=== PATIENT | male | born 1950 | race Caucasian/White ===

== ENCOUNTER 2017-08-19 09:46 | Emergency (ER) | payer MEDICARE, BC ==
--- NOTE | 2017-08-19 10:57 | XR ---
EXAMINATION TYPE: XR Hip RT and AP Pelvis , 3 VIEWS DATE OF EXAM ORDERED: 08/19/2017 HISTORY: Pain. COMPARISON: None. FINDINGS: Osseous structures about the pelvis are unremarkable. No fracture or dislocation is seen. The right hip is unremarkable. IMPRESSION: NO ACUTE OSSEOUS LESION.
--- NOTE | 2017-08-19 10:58 | XR ---
EXAMINATION TYPE: XR lumbar spine 2 or 3V , 3 VIEWS DATE OF EXAM ORDERED: 08/19/2017 HISTORY: Pain. COMPARISON: None. FINDINGS: Vertebral body height and alignment are maintained. No fractures are identified. There is no spondylolysis or spondylolisthesis. There is mild disc space loss at L4-5 and L5-S1. The pedicles are intact. IMPRESSION: 1. NO ACUTE OSSEOUS LESION. 2. MILD DEGENERATIVE CHANGE.
--- NOTE | 2017-08-19 11:20 | ED ---
General Adult HPI - General Chief complaint: Back Pain/Injury Stated complaint: back pain Time Seen by Provider: 08/19/17 10:09 Source: patient, RN notes reviewed Mode of arrival: ambulatory Limitations: no limitations - History of Present Illness Initial comments: Patient 66-year-old male presenting to the emergency room today with a chief complaint of increased lower back pain radiating down the right leg. Does not that he saw the family doctor for this recurrent in the week is currently taking tramadol, Flexeril, ibuprofen but having little relief the symptoms. He does admit that his leg has given out on him a few times yesterday having some falls. He admits to increased pain to the right hip. Patient denies any head injury or loss conscious. He is not on any blood thinners. Patient does admit still expressing pain radiating down to approximately mid calf. Patient denies any bowel or bladder incontinence retention. Denies any saddle anesthesia. Patient denies any recent fever, chills, shortness of breath, chest pain, abdominal pain, nausea or vomiting, headaches or visual changes, or any other complaints. - Related Data Home Medications Medication Instructions Recorded Confirmed Amantadine HCl [Symmetrel] 100 mg PO BID 08/19/17 08/19/17 Carbidopa-Levodopa 25-100 mg 2 tab PO QID 08/19/17 08/19/17 [Sinemet 25-100] Cartilage/Collagen/Bor/Hyalur 1 tab PO DAILY 08/19/17 08/19/17 [Move Free Ultra Tablet] Cyclobenzaprine [Flexeril] 10 mg PO HS PRN 08/19/17 08/19/17 Donepezil [Aricept] 10 mg PO HS 08/19/17 08/19/17 Entacapone [Comtan] 200 mg PO HS 08/19/17 08/19/17 Ibuprofen [Motrin] 800 mg PO BID PRN 08/19/17 08/19/17 Sildenafil Citrate [Viagra] 100 mg PO DAILY PRN 08/19/17 08/19/17 clonazePAM [KlonoPIN] 1 mg PO HS 08/19/17 08/19/17 Previous Rx's Medication Instructions Recorded Dexamethasone 0.75 mg PO DIRECTED #12 tablet 08/19/17 Hydrocodone/Acetaminophen [Cordova 1 each PO Q6HR PRN #12 tab 08/19/17 5-325] Allergies Allergy/AdvReac Type Severity Reaction Status Date / Time No Known Allergies Allergy Verified 08/19/17 09:58 Review of Systems ROS Statement: Those systems with pertinent positive or pertinent negative responses have been documented in the HPI. ROS Other: All systems not noted in ROS Statement are negative. Past Medical History Past Medical History: Dementia Additional Past Medical History / Comment(s): parkensons History of Any Multi-Drug Resistant Organisms: None Reported Past Surgical History: Appendectomy Past Psychological History: No Psychological Hx Reported Smoking Status: Former smoker Past Alcohol Use History: None Reported Past Drug Use History: None Reported General Exam - General Exam Comments Initial Comments: General: The patient is awake and alert, in no distress, and does not appear acutely ill. Eye: Pupils are equal, round and reactive to light, extra-ocular movements are intact. No nystagmus. There is normal conjunctiva bilaterally. No signs of icterus. Ears, nose, mouth and throat: There are moist mucous membranes and no oral lesions. Neck: The neck is supple, there is no tenderness or JVD. Cardiovascular: There is a regular rate and rhythm. No murmur, rub or gallop is appreciated. Respiratory: Lungs are clear to auscultation, respirations are non-labored, breath sounds are equal. No wheezes, stridor, rales, or rhonchi Musculoskeletal: Normal ROM. Patient is able to stand and ambulate. Patient does have mild tenderness to the paravertebral area of the right lower lumbar pain over the SI joint. Strength 5/5. Sensation intact. Pulses equal bilaterally 2+. Neurological: A&O x 3. CN II-XII intact, There are no obvious motor or sensory deficits. Coordination appears grossly intact. Speech is normal. Skin: Skin is warm and dry and no rashes or lesions are noted. Psychiatric: Cooperative, appropriate mood & affect, normal judgment. Limitations: no limitations Course Vital Signs 08/19/17 09:49 Temperature 98.4 F Pulse Rate 73 Respiratory 18 Rate Blood Pressure 143/70 O2 Sat by Pulse 99 Oximetry Medical Decision Making - Medical Decision Making X-rays reviewed does show arthritic changes of the lumbar spine with no acute fractures dislocations seen in the lumbar spine, hip or pelvis. Results were discussed with the patient. Patient will be given a short course of steroids and pain medication of Cordova. Advised to follow-up the family doctor states is an appointment tomorrow. Advised about side effects of Cordova. Advised return for any other concerns. Disposition Clinical Impression: Acute lumbar radiculopathy Disposition: HOME SELF-CARE Condition: Good Instructions: Lumbar Radiculopathy (ED) Additional Instructions: Please use medication as discussed. Please follow-up with family doctor tomorrow as discussed. Please return to emergency room if the symptoms increase or worsen or for any other concerns. Prescriptions: Dexamethasone 0.75 mg PO DIRECTED #12 tablet Hydrocodone/Acetaminophen [Cordova 5-325] 1 each PO Q6HR PRN #12 tab PRN Reason: Pain Referrals: Srini Heath MD [Primary Care Provider] - 1-2 days Time of Disposition: 11:19
[2017-08-19 11:28] VITALS: BP 141/76; PULSE 78; RESP 16; TEMP 97.9
== END 2017-08-19 11:26 | disposition home or self-care (01) ==
LOC: EC 09:46
DX: M54.16 Radiculopathy, lumbar region (principal); F03.90 Unspecified dementia, unspecified severity, without behavioral disturbance, psychotic disturbance, mood disturbance, and anxiety; Z87.891 Personal history of nicotine dependence; Z79.899 Other long term (current) drug therapy
CPT/HCPCS: 72100; 73502; 99283

== ENCOUNTER → 2017-08-29 | Outpatient (CLI) | payer BC, MEDICARE ==
--- NOTE | 2017-08-29 15:36 | NM ---
EXAMINATION TYPE: NM bone scan whole body DATE OF EXAM: 08/29/2017 COMPARISON: NONE HISTORY: 66-year-old male with low back pain for 3 weeks, hip pain Technique: Delayed whole-body scanning was performed following the injection of 24.3 mCi Tc 99m MDP. Images acquired 3 hours post injection. FINDINGS: There is degenerative tracer activity at the shoulders and medial compartment of the right knee. There is focal tracer activity along the posterior elements at L4-L5. Additional degenerative tracer activity in the posterior elements of the midcervical spine. Otherwise, no suspicious accumulation of radiotracer to suggest osseous metastatic disease. IMPRESSION: 1. Focal tracer activity involving the right posterior elements at L4-L5. Findings could reflect galilea re asymmetric facet arthropathy or a pars interarticularis defect. 2. Scattered degenerative tracer activity at the shoulders, medial compartment of the right knee, and within the mid cervical spine.
== END | disposition home or self-care (01) ==
LOC: RADNMMAIN 10:36
PROVIDERS: ATTEND Family Medicine
DX: R93.7 Abnormal findings on diagnostic imaging of other parts of musculoskeletal system (principal)
CPT/HCPCS: 78306; A9503

== ENCOUNTER → 2017-09-26 | Outpatient (CLI) | payer BC, MEDICARE ==
--- NOTE | 2017-09-26 21:03 | MR ---
EXAMINATION TYPE: MR lumbar spine wo con DATE OF EXAM: 09/26/2017 COMPARISON: NONE HISTORY: low back pain CONTRAST: 0 mL intravenous Gadavist. TECHNIQUE: Multiplanar, multisequence images of the lumbar spine were acquired. FINDINGS: Cord terminates at the T12 level. L5-S1: Mild disc bulge has mild anterior thecal sac compression. No AP spinal canal stenosis is prese nt. There appears to be some minimal retrolisthesis of L5 posterior on S1. Disc uncovering is present . Facet hypertrophy is present. There is mild right foraminal narrowing. Severe left foraminal narrow ing is present. Correlate with left S1 radicular symptoms. L4-L5: Facet hypertrophy has posterior lateral thecal sac compression. Lateral canal narrowing is pre sent. AP spinal canal stenosis is borderline present. There is a large right paracentral disc herniat ion extending superiorly to lie posterior to the L4 level. This has moderate to severe anterior theca l sac compression. There is likely right L5 radicular compression. Severe right foraminal stenosis wi thin the foramen is present. There is moderate left foraminal narrowing. L3-L4: Minimal disc bulge has anterior thecal sac contact. Mild facet hypertrophy is posterior latera l thecal sac compression. No spinal canal stenosis. No foraminal stenosis. L2-L3: No significant disc bulge or disc herniation. No spinal canal stenosis. No foraminal stenosi s. Neural foramen are patent.. L1-L2: No significant disc bulge or disc herniation. No spinal canal stenosis. No foraminal stenosi s. T12-L1: No significant disc bulge or disc herniation. No spinal canal stenosis. No foraminal stenos is. IMPRESSION: 1. Retrolisthesis of L5 on S1 with mild disc uncovering. 2. Severe left foraminal narrowing L5-S1 secondary to disc bulging into the foramen. 3. Severe right foraminal stenosis L4-5 due to facet hypertrophy and disc bulging with nerve root com pression within the foramen. 4. Large disc herniation right paracentral L4-5 likely has right L5 nerve root compression and displa cement within the spinal canal.
--- NOTE | 2017-09-26 21:13 | MR ---
EXAMINATION TYPE: MR brain wo/w con DATE OF EXAM: 09/26/2017 COMPARISON: 12/02/2015 HISTORY: Mild cognitive impairment, history of Parkinson's disease CONTRAST: Performed utilizing 7.5 mL intravenous Gadavist gadolinium contrast. TECHNIQUE: Multiplanar, multiecho imaging on a 3.0 Bernadette magnet is performed through the brain. Stud y is performed within 24 hours of arrival to the hospital. The craniovertebral junction is normal. The pituitary is normal. Diffusion-weighted imaging is performed. No abnormal hyperintensity is present to suggest an acute i ntracranial infarct or acute ischemic change. There are scattered subcortical and deep white matter changes. The largest is within the proximal rig ht temporal lobe. These white matter lesions are slightly more conspicuous but appears similar in num jenn and distribution from the previous study. Differential could include microvascular ischemic frye e. Substantia nigra is not well visualized. There is a suggestion there may be some narrowing of the rig ht red nucleus substantia nigra space which has been associated with Parkinson's disease. Ventricles and sulci are prominent for the patient age. No abnormal enhancement is evident. IMPRESSIONS: 1. Similar distribution but slightly improved visualization of multiple white matter changes. Finding s are nonspecific but can be related to microvascular ischemic change. 2. Substantia nigra is somewhat difficult to visualize on this exam the space however on the right be tween the red nucleus and substantia nigra may be narrow which is associated with Parkinson's.
== END ==
LOC: RADMRIMAIN 15:05
PROVIDERS: ATTEND Psychiatry & Neurology Neurology
DX: R90.89 Other abnormal findings on diagnostic imaging of central nervous system (principal); M79.604 Pain in right leg
CPT/HCPCS: 70553; 72148; A9581

== ENCOUNTER 2018-10-14 09:12 | Emergency (ER) | payer MEDICARE, BC ==
[2018-10-14] MEDS ORDERED: SODIUM CHLORIDE 0.9% 1,000 ML IV STA (09:18)
[2018-10-14] MEDS ORDERED: SODIUM CHLORIDE 0.9% 500 ML 500 ML IV STA (09:18)
--- NOTE | 2018-10-14 09:48 | ED ---
Syncope HPI - General Chief Complaint: Syncope Stated Complaint: SYNCOPAL EPISODE Time Seen by Provider: 10/14/18 09:18 Source: patient, EMS, RN notes reviewed Mode of arrival: EMS Limitations: no limitations - History of Present Illness Initial Comments: This is a 68-year-old male with a history of Parkinson's disease who states he fell he did pass out prior to arrival by EMS from his doctor's office. He states he been standing for about 10 minutes when this occurred. He did not actually lose consciousness he denied fevers chills nausea vomiting sweats or other symptoms. He was noted by paramedics have a heart rate of 58 blood pressure approximately 120 systolic. No other modifying factors at this time MD Complaint: almost passed out - Related Data Home Medications Medication Instructions Recorded Confirmed Amantadine HCl [Symmetrel] 100 mg PO BID 08/19/17 10/14/18 Carbidopa-Levodopa 25-100 mg 2 tab PO QID 08/19/17 10/14/18 [Sinemet 25-100] Donepezil [Aricept] 10 mg PO HS 08/19/17 10/14/18 Sildenafil Citrate [Viagra] 100 mg PO DAILY PRN 08/19/17 10/14/18 clonazePAM [KlonoPIN] 1.5 mg PO HS 08/19/17 10/14/18 Atorvastatin Calcium [Lipitor] 80 mg PO HS 10/14/18 10/14/18 Ibuprofen [Motrin Ib] 200 mg PO DAILY PRN 10/14/18 10/14/18 Memantine [Namenda] 10 mg PO BID 10/14/18 10/14/18 Multivitamins, Thera [Multivitamin 1 tab PO DAILY 10/14/18 10/14/18 (formulary)] Allergies Allergy/AdvReac Type Severity Reaction Status Date / Time No Known Allergies Allergy Verified 10/14/18 09:31 Review of Systems ROS Statement: Those systems with pertinent positive or pertinent negative responses have been documented in the HPI. ROS Other: All systems not noted in ROS Statement are negative. Past Medical History Past Medical History: Dementia Additional Past Medical History / Comment(s): [place] History of Any Multi-Drug Resistant Organisms: None Reported Past Surgical History: Appendectomy Past Psychological History: No Psychological Hx Reported Smoking Status: Former smoker Past Alcohol Use History: None Reported Past Drug Use History: None Reported General Exam - General Exam Comments Initial Comments: Pezzer well-developed asthenic appearing male who is awake alert oriented 3 Limitations: no limitations General appearance: alert, in no apparent distress Head exam: Present: atraumatic, normocephalic, normal inspection Eye exam: Present: normal appearance, PERRL, EOMI. Absent: scleral icterus, conjunctival injection, periorbital swelling ENT exam: Present: mucous membranes dry Neck exam: Present: normal inspection, full ROM, other (No stridor JVD or bruits). Absent: tenderness, meningismus, lymphadenopathy Respiratory exam: Present: normal lung sounds bilaterally. Absent: respiratory distress, wheezes, rales, rhonchi, stridor Cardiovascular Exam: Present: regular rate, normal rhythm, normal heart sounds. Absent: systolic murmur, diastolic murmur, rubs, gallop, clicks GI/Abdominal exam: Present: soft, normal bowel sounds. Absent: distended, tenderness, guarding, rebound, rigid Extremities exam: Present: normal inspection, full ROM, normal capillary refill. Absent: tenderness, pedal edema, joint swelling, calf tenderness Back exam: Present: normal inspection Neurological exam: Present: alert, oriented X3, CN II-XII intact Psychiatric exam: Present: normal mood, flat affect Skin exam: Present: warm, dry, intact, normal color. 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 No PACs or PVCs noted. Rate was 55. Medical Decision Making - Medical Decision Making Reevaluation patient reveals that he is much improved he feels much better after IV fluids. I did discuss findings with him and is with his . Patient will be discharged home. The presentation is likely secondary to viral depletion. He is also noted have a slightly diminished glucose initially.. They are aware this - Lab Data Result diagrams: 10/14/18 09:25 10/14/18 09:30 Lab Results 10/14/18 10/14/18 10/14/18 Range/Units 09:25 09:30 09:30 WBC 6.2 (3.8-10.6) k/uL RBC 5.18 (4.30-5.90) m/uL Hgb 16.0 (13.0-17.5) gm/dL Hct 47.6 (39.0-53.0) % MCV 91.8 (80.0-100.0) fL MCH 30.8 (25.0-35.0) pg MCHC 33.6 (31.0-37.0) g/dL RDW 12.5 (11.5-15.5) % Plt Count 288 (150-450) k/uL Neutrophils % 75 % Lymphocytes % 15 % Monocytes % 5 % Eosinophils % 1 % Basophils % 0 % Neutrophils # 4.7 (1.3-7.7) k/uL Lymphocytes # 1.0 (1.0-4.8) k/uL Monocytes # 0.3 (0-1.0) k/uL Eosinophils # 0.1 (0-0.7) k/uL Basophils # 0.0 (0-0.2) k/uL PT 10.0 (9.0-12.0) sec INR 0.9 (<1.2) APTT 22.3 (22.0-30.0) sec Sodium 141 (137-145) mmol/L Potassium 4.4 (3.5-5.1) mmol/L Chloride 105 (98-107) mmol/L Carbon Dioxide 30 (22-30) mmol/L Anion Gap 6 mmol/L BUN 19 (9-20) mg/dL Creatinine 1.02 (0.66-1.25) mg/dL Est GFR (CKD-EPI)AfAm 88 (>60 ml/min/1.73 sqM) Est GFR (CKD-EPI)NonAf 76 (>60 ml/min/1.73 sqM) Glucose 71 L (74-99) mg/dL Calcium 9.5 (8.4-10.2) mg/dL Magnesium 2.1 (1.6-2.3) mg/dL Total Bilirubin 0.9 (0.2-1.3) mg/dL AST 28 (17-59) U/L ALT 15 L (21-72) U/L Alkaline Phosphatase 63 (38-126) U/L Creatine Kinase 89 (55-170) U/L Troponin I (0.000-0.034) ng/mL Total Protein 6.4 (6.3-8.2) g/dL Albumin 4.2 (3.5-5.0) g/dL 10/14/18 Range/Units 09:30 WBC (3.8-10.6) k/uL RBC (4.30-5.90) m/uL Hgb (13.0-17.5) gm/dL Hct (39.0-53.0) % MCV (80.0-100.0) fL MCH (25.0-35.0) pg MCHC (31.0-37.0) g/dL RDW (11.5-15.5) % Plt Count (150-450) k/uL Neutrophils % % Lymphocytes % % Monocytes % % Eosinophils % % Basophils % % Neutrophils # (1.3-7.7) k/uL Lymphocytes # (1.0-4.8) k/uL Monocytes # (0-1.0) k/uL Eosinophils # (0-0.7) k/uL Basophils # (0-0.2) k/uL PT (9.0-12.0) sec INR (<1.2) APTT (22.0-30.0) sec Sodium (137-145) mmol/L Potassium (3.5-5.1) mmol/L Chloride (98-107) mmol/L Carbon Dioxide (22-30) mmol/L Anion Gap mmol/L BUN (9-20) mg/dL Creatinine (0.66-1.25) mg/dL Est GFR (CKD-EPI)AfAm (>60 ml/min/1.73 sqM) Est GFR (CKD-EPI)NonAf (>60 ml/min/1.73 sqM) Glucose (74-99) mg/dL Calcium (8.4-10.2) mg/dL Magnesium (1.6-2.3) mg/dL Total Bilirubin (0.2-1.3) mg/dL AST (17-59) U/L ALT (21-72) U/L Alkaline Phosphatase (38-126) U/L Creatine Kinase (55-170) U/L Troponin I <0.012 (0.000-0.034) ng/mL Total Protein (6.3-8.2) g/dL Albumin (3.5-5.0) g/dL - EKG Data -: EKG Interpreted by Me EKG shows normal: sinus rhythm (Sinus bradycardia rate 55. Interval 132 QRS duration 98 QT since QTC 420/4. [address]-T wave changes.) - Radiology Data Radiology results: report reviewed (I did review the imaging and report no acute findings.), image reviewed Disposition Clinical Impression: Vasovagal syncope, Dehydration Disposition: HOME SELF-CARE Condition: Good Instructions (If sedation given, give patient instructions): Near Syncope (ED), Dehydration (ED) Is patient prescribed a controlled substance at d/c from ED?: No Referrals: Srini Heath MD [Primary Care Provider] - 1-2 days
--- NOTE | 2018-10-14 10:19 | CT ---
EXAMINATION TYPE: CT brain wo con DATE OF EXAM: 10/14/2018 COMPARISON: None HISTORY: 68-year-old male syncope TECHNIQUE: Examination was done in axial plane without intravenous contrast. Coronal and sagittal r econstructions performed. CT DLP: 1086.4 mGycm Automated exposure control for dose reduction was used. FINDINGS: There is no evidence of acute intracranial hemorrhage, acute ischemic changes, mass, mass-effect, or extra-axial fluid collection. There is no effacement of cerebral sulci or basal subarachnoid cister ns. There is no hydrocephalus. There is no midline shift. Rojas-white matter distinction is preserv ed. Mild cerebral cortical atrophy. Trace mucosal thickening ethmoid air cells. Mastoid air cells are well pneumatized. Orbits and globe s are intact. IMPRESSION: Mild cerebral atrophy. No acute intracranial abnormality seen.
--- NOTE | 2018-10-14 10:22 | XR ---
EXAMINATION TYPE: XR chest 2V DATE OF EXAM: 10/14/2018 COMPARISON: None HISTORY: 68-year-old male syncope today TECHNIQUE: AP and lateral views FINDINGS: Heart normal size. Aorta and pulmonary vasculature within normal limits. Degenerative changes of both shoulders. No consolidation or pleural effusion. IMPRESSION: No acute cardiopulmonary process.
[2018-10-14 10:35] LABS: INR 0.9 (<1.2); Partial Thromboplastin Time 22.3 sec (22.0-30.0)
[2018-10-14 10:36] LABS: Basophils % (A) 0 %; Eosinophils # (A) 0.1 k/uL (0-0.7); Eosinophils % (A) 1 %; HCT 47.6 % (39.0-53.0); Lymphocytes % (A) 15 %; MCH 30.8 pg (25.0-35.0); MCHC 33.6 g/dL (31.0-37.0); MCV 91.8 fL (80.0-100.0); Mean Platelet Volume 6.8; Monocytes # (A) 0.3 k/uL (0-1.0); Monocytes % (A) 5 %; Neutrophils # (A) 4.7 k/uL (1.3-7.7); Neutrophils % (A) 75 %; Platelet Count 288 k/uL (150-450); RBC 5.18 m/uL (4.30-5.90); RDW 12.5 % (11.5-15.5); WBC 6.2 k/uL (3.8-10.6)
[2018-10-14 10:41] LABS: Albumin 4.2 g/dL (3.5-5.0); Calcium 9.5 mg/dL (8.4-10.2); Magnesium 2.1 mg/dL (1.6-2.3); Potassium 4.4 mmol/L (3.5-5.1); Total Bilirubin 0.9 mg/dL (0.2-1.3); Total Protein 6.4 g/dL (6.3-8.2)
[2018-10-14 12:40] VITALS: BP 126/82; PULSE 76; RESP 18; TEMP 98.5
== END 2018-10-14 12:38 | disposition home or self-care (01) ==
LOC: EC 09:12
DX: E86.0 Dehydration (principal); R55 Syncope and collapse; G20 Parkinson's disease; F02.80 Dementia in other diseases classified elsewhere, unspecified severity, without behavioral disturbance, psychotic disturbance, mood disturbance, and anxiety; Z79.899 Other long term (current) drug therapy; Z87.891 Personal history of nicotine dependence
CPT/HCPCS: 36415; 70450; 71046; 80053; 82550; 83735; 84484; 85025; 85610; 85730; 93005; 96360; 96361; 99285

== ENCOUNTER 2019-07-24 10:39 | Observation (INO) | payer BC, MEDICARE ==
[2019-07-24] MEDS ORDERED: SODIUM CHLORIDE 0.9% 500 ML 500 ML IV STA (11:20)
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
[2019-07-24 11:57] LABS: Basophils # (A) 0.1 k/uL (0-0.2); Basophils % (A) 1 %; Eosinophils # (A) 0.1 k/uL (0-0.7); Eosinophils % (A) 1 %; HGB 14.2 gm/dL (13.0-17.5); Lymphocytes # (A) 0.9 k/uL (1.0-4.8); Lymphocytes % (A) 13 %; MCH 29.9 pg (25.0-35.0); MCHC 32.3 g/dL (31.0-37.0); MCV 92.4 fL (80.0-100.0); Mean Platelet Volume 6.7; Monocytes # (A) 0.3 k/uL (0-1.0); Monocytes % (A) 4 %; Neutrophils # (A) 5.1 k/uL (1.3-7.7); Neutrophils % (A) 76 %; Platelet Count 654 k/uL (150-450); RBC 4.76 m/uL (4.30-5.90); RDW 11.8 % (11.5-15.5); WBC 6.7 k/uL (3.8-10.6)
[2019-07-24 12:14] LABS: ALT 16 U/L (4-49); AST 46 U/L (17-59); African American GFR (CKD) >90 (>60 ml/min/1.73 sqM); Albumin 3.9 g/dL (3.5-5.0); Alkaline Phosphatase 138 U/L (38-126); Amylase 63 U/L (30-110); Anion Gap 6 mmol/L; Blood Urea Nitrogen 19 mg/dL (9-20); Calcium 9.3 mg/dL (8.4-10.2); Carbon Dioxide 32 mmol/L (22-30); Chloride 99 mmol/L (98-107); Glucose 91 mg/dL (74-99); Non-African American GFR(CKD) 85 (>60 ml/min/1.73 sqM); Potassium 5.8 mmol/L (3.5-5.1); Sodium 137 mmol/L (137-145); Total Bilirubin 0.6 mg/dL (0.2-1.3); Total Protein 6.5 g/dL (6.3-8.2)
--- NOTE | 2019-07-24 12:34 | XR ---
EXAMINATION TYPE: XR chest 1V portable DATE OF EXAM: 07/24/2019 Comparison: 10/14/2018 Clinical History: 68-year-old male with abdominal pain Findings: Heart normal size. Aorta and pulmonary vasculature within normal limits. Some strandy areas of atelec tasis in the lower lungs. No consolidation or pleural effusion. Impression: No acute cardiopulmonary process.
--- NOTE | 2019-07-24 12:38 | XR ---
EXAMINATION TYPE: XR KUB DATE OF EXAM: 07/24/2019 Comparison: None Clinical History: 68-year-old male with abdominal pain Findings: Lung bases are clear. A PEG tube is in place. Supine imaging limited for assessment of free air. No dilated bowel. Scattered colonic air extending distally to the rectum. No significant stool burden . Pelvic phleboliths. Impression: Nonobstructive bowel gas pattern. A PEG tube is present. No significant stool burden.
[2019-07-24 13:14] LABS: Amorphous Sediment,Urine Occasional /hpf; Mucus,Urine Rare /hpf; RBC,Urine 1 /hpf (0-5)
[2019-07-24 13:21] LABS: Appearance,Urine Cloudy (Clear); Color,Urine Yellow; Specific Gravity,Urine 1.005 (1.001-1.035)
[2019-07-24 13:22] LABS: Bilirubin,Urine Negative (Negative); Blood,Urine Negative (Negative); Glucose,Urine (UA) Negative (Negative); Ketones,Urine Negative (Negative); Leukocyte Esterase,Urine Negative (Negative); Nitrite,Urine Negative (Negative); Protein,Urine 1+ (Negative)
[2019-07-24] MEDS ORDERED: SODIUM CHLORIDE 0.9% 500 ML 500 ML IV ONE (13:22)
[2019-07-24] MEDS: SODIUM CHLORIDE 0.9% 1,000 ML IV SCH (13:33)
[2019-07-24] MEDS ORDERED: MORPHINE SULFATE 4 MG/ML SYRINGE IV PRN (14:24)
[2019-07-24] MEDS ORDERED: NALOXONE 0.4 MG/ML 1 ML VIAL IV PRN (14:24)
[2019-07-24] MEDS ORDERED: ASPIRIN 325 MG TAB PO STA (14:24)
[2019-07-24] MEDS ORDERED: ACETAMINOPHEN TAB 325 MG TAB PO PRN (14:24)
[2019-07-24 17:22] LABS: Glucose,Whole Blood 96 mg/dL (75-99)
[2019-07-24 20:38] LABS: Glucose,Whole Blood 96 mg/dL (75-99)
[2019-07-25] MEDS: SODIUM CHLORIDE 0.9% 1,000 ML IV SCH ×2 (03:00→18:46)
[2019-07-25 06:13] LABS: Glucose,Whole Blood 97 mg/dL (75-99)
[2019-07-25 06:32] LABS: HCT 40.7 % (39.0-53.0); HGB 13.2 gm/dL (13.0-17.5); MCHC 32.3 g/dL (31.0-37.0); MCV 92.7 fL (80.0-100.0); Mean Platelet Volume 6.7; Platelet Count 588 k/uL (150-450); RBC 4.39 m/uL (4.30-5.90); WBC 6.7 k/uL (3.8-10.6)
[2019-07-25 06:40] LABS: African American GFR (CKD) >90 (>60 ml/min/1.73 sqM); Anion Gap 7 mmol/L; Blood Urea Nitrogen 14 mg/dL (9-20); Calcium 8.9 mg/dL (8.4-10.2); Carbon Dioxide 29 mmol/L (22-30); Chloride 100 mmol/L (98-107); Glucose 84 mg/dL (74-99); Non-African American GFR(CKD) >90 (>60 ml/min/1.73 sqM); Potassium 4.9 mmol/L (3.5-5.1); Sodium 136 mmol/L (137-145)
[2019-07-25] MEDS: AMANTADINE HCL 100 MG CAP PO SCH ×2 (08:10→21:25)
[2019-07-25] MEDS: DOCUSATE ORAL SOLN 100 MG/10 ML CUP PEG/G-TUBE SCH (08:10)
[2019-07-25] MEDS: CARBIDOPA-LEVODOPA 25-100 MG 1 EACH TAB PEG/G-TUBE SCH ×4 (08:12→18:00)
[2019-07-25] MEDS: MEMANTINE 10 MG TAB PEG/G-TUBE SCH ×2 (08:12→21:25)
[2019-07-25] MEDS: DONEPEZIL 10 MG TAB PEG/G-TUBE SCH (08:12)
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
[2019-07-25 10:33] VITALS: BMI 19.4
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
[2019-07-25 11:50] LABS: Glucose,Whole Blood 98 mg/dL (75-99)
--- NOTE | 2019-07-25 12:52 | ECHOF ---
Referral Reason:chest pain MEASUREMENTS -------- HEIGHT: 182.9 cm WEIGHT: 64.9 kg BP: 141/71 RVIDd: 2.7 cm (< 3.3) IVSd: 1.1 cm (0.6 - 1.1) LVIDd: 3.9 cm (3.9 - 5.3) LVPWd: 1.3 cm (0.6 - 1.1) IVSs: 1.3 cm LVIDs: 2.6 cm LVPWs: 1.5 cm LA Diam: 3.0 cm (2.7 - 3.8) LAESV Index (A-L): 14.56 ml/m Ao Diam: 3.4 cm (2.0 - 3.7) AV Cusp: 1.6 cm (1.5 - 2.6) LA Diam: 3.2 cm (2.7 - 3.8) MV EXCURSION: 17.614 mm (> 18.000) MV EF SLOPE: 58 mm/s (70 - 150) EPSS: 0.4 cm MV E Deshawn: 0.48 m/s MV DecT: 231 ms MV A Deshawn: 0.63 m/s MV E/A Ratio: 0.77 RAP: 5.00 mmHg RVSP: 20.45 mmHg FINDINGS -------- Sinus rhythm. This was a technically good study. LV size, wall thickness and systolic function are normal, with an EF greater than 55%. The left melida tricular size is normal. Overall left ventricular systolic function is normal with, an EF between 5 5 - 60 %. The diastolic filling pattern is normal for the age of the patient 5.46. The right ventricle is normal in size. The left atrial size is normal. Normal LA size by volume 22+/-6 ml/m2. The right atrial size is normal. The aortic valve is trileaflet, and appears structurally normal. No aortic stenosis or regurgitation. Mild mitral annular calcification present. Mild mitral regurgitation is present. Mild tricuspid regurgitation present. Right ventricular systolic pressure is normal at < 35 mmHg. There is no evidence of pulmonary hypertension. There is no pulmonic regurgitation present. The aortic root size is normal. There is no pericardial effusion. CONCLUSIONS -------- 1. Sinus rhythm. 2. This was a technically good study. 3. LV size, wall thickness and systolic function are normal, with an EF greater than 55%. 4. The left ventricular size is normal. 5. Overall left ventricular systolic function is normal with, an EF between 55 - 60 %. 6. The diastolic filling pattern is normal for the age of the patient 5.46 7. The right ventricle is normal in size. 8. The left atrial size is normal. 9. Normal LA size by volume 22+/-6 ml/m2. 10. The right atrial size is normal. 11. The aortic valve is trileaflet, and appears structurally normal. No aortic stenosis or regurgitat ion. 12. Mild mitral annular calcification present. 13. Mild mitral regurgitation is present. 14. Mild tricuspid regurgitation present. 15. Right ventricular systolic pressure is normal at < 35 mmHg. 16. There is no evidence of pulmonary hypertension. 17. There is no pulmonic regurgitation present. 18. The aortic root size is normal. 19. There is no pericardial effusion. BEARING RING ASSEMBLER: Serene Molina RDCS
--- NOTE | 2019-07-25 19:31 | PN ---
PROGRESS NOTE DATE OF SERVICE: 07/25/2019. CHIEF COMPLAINT: Hypotension and dehydration. HISTORY OF PRESENT ILLNESS: This gentleman is still more lethargic than normal. Blood pressure is improved. Hydration is improved. The question is whether or not his Parkinson's medications should be increased to see if he realizes motor benefit. PHYSICAL EXAM: Vital signs are normal. Chest is clear. Cardiac exam is normal. Abdomen is soft and flat. Extremities are normal. IMPRESSION: 1. Chest pain. 2. Hypotension. 3. Parkinson disease. 4. Dementia. 5. Lethargy. PLAN: Continue with current program and if he stabilizes, probably send back to the correction the first of the week. MMODL / IJN: [id number] /
[2019-07-25 20:32] LABS: Glucose,Whole Blood 117 mg/dL (75-99)
[2019-07-25] MEDS: ATORVASTATIN 20 MG TAB PO SCH (21:25)
[2019-07-26 06:19] LABS: Glucose,Whole Blood 105 mg/dL (75-99)
[2019-07-26] MEDS: SODIUM CHLORIDE 0.9% 1,000 ML IV SCH ×3 (06:30→18:40)
[2019-07-26] MEDS: CARBIDOPA-LEVODOPA 25-100 MG 1 EACH TAB PEG/G-TUBE SCH ×4 (08:24→17:21)
[2019-07-26] MEDS: MEMANTINE 10 MG TAB PEG/G-TUBE SCH ×2 (08:24→19:28)
[2019-07-26] MEDS: AMANTADINE HCL 100 MG CAP PO SCH ×3 (08:24→19:41)
[2019-07-26] MEDS: DONEPEZIL 10 MG TAB PEG/G-TUBE SCH (08:24)
[2019-07-26] MEDS: DOCUSATE ORAL SOLN 100 MG/10 ML CUP PEG/G-TUBE SCH (08:24)
[2019-07-26] MEDS: ASPIRIN 81 MG PO SCH (08:24)
[2019-07-26 12:05] LABS: Glucose,Whole Blood 109 mg/dL (75-99)
--- NOTE | 2019-07-26 15:10 | PN ---
PROGRESS NOTE DATE OF SERVICE: 07/26/2019 CHIEF COMPLAINT: Dehydration, hypotension, Parkinson's disease and depression. HISTORY OF PRESENT ILLNESS: This patient has been stable. There has been no recent significant change. wondering if he could have another swallow evaluation. He seems to be a little bit more awake and alert now that his Parkinson's disease medication is up to speed. Review of systems is unobtainable. PHYSICAL EXAMINATION: Blood pressure is stable. He is afebrile. He is awake and alert, but he is not speaking normally. His chest is clear. Cardiac exam is normal. Abdomen is soft and nontender with a PEG tube in place. Extremities are normal. IMPRESSION: 1. Hypotension. 2. Dehydration. 3. Parkinson's disease. 4. Depression. 5. Encephalopathy. PLAN: 1. Arrange for Speech Therapy to do a bedside swallow evaluation. 2. Add Protonix 40 mg b.i.d. to his tube feedings. MMODL / IJN: [id number] /
[2019-07-26 17:19] LABS: Glucose,Whole Blood 106 mg/dL (75-99)
[2019-07-26] MEDS: PANTOPRAZOLE 40 MG TABLET PO SCH (17:21)
[2019-07-26] MEDS ORDERED: HALOPERIDOL LACTATE 5 MG/ML 1 ML VIAL IM ONE (19:12)
[2019-07-26] MEDS: ATORVASTATIN 20 MG TAB PO SCH (19:28)
[2019-07-26 21:39] LABS: Glucose,Whole Blood 126 mg/dL (75-99)
[2019-07-27] MEDS: SODIUM CHLORIDE 0.9% 1,000 ML IV SCH ×2 (03:43→09:17)
[2019-07-27 06:12] LABS: Glucose,Whole Blood 100 mg/dL (75-99)
[2019-07-27] MEDS: DONEPEZIL 10 MG TAB PEG/G-TUBE SCH (07:33)
[2019-07-27] MEDS: DOCUSATE ORAL SOLN 100 MG/10 ML CUP PEG/G-TUBE SCH (07:33)
[2019-07-27] MEDS: MEMANTINE 10 MG TAB PEG/G-TUBE SCH ×2 (07:33→20:40)
[2019-07-27] MEDS: PANTOPRAZOLE 40 MG TABLET PO SCH ×2 (07:34→14:51)
[2019-07-27] MEDS: ASPIRIN 81 MG PO SCH (07:34)
[2019-07-27] MEDS: CARBIDOPA-LEVODOPA 25-100 MG 1 EACH TAB PEG/G-TUBE SCH ×4 (07:34→17:21)
[2019-07-27] MEDS: AMANTADINE HCL 100 MG CAP PO SCH ×2 (07:34→20:40)
[2019-07-27] MEDS ORDERED: MAGNESIUM HYDROXIDE 2,400 MG/10 ML CUP PO PRN (12:04)
[2019-07-27 12:12] LABS: Glucose,Whole Blood 115 mg/dL (75-99)
[2019-07-27 17:05] LABS: Glucose,Whole Blood 118 mg/dL (75-99)
[2019-07-27 20:34] LABS: Glucose,Whole Blood 105 mg/dL (75-99)
[2019-07-27] MEDS: ATORVASTATIN 20 MG TAB PO SCH (20:40)
--- NOTE | 2019-07-27 22:34 | PN ---
PROGRESS NOTE CHIEF COMPLAINT: Hypotension, Parkinson disease. HISTORY OF PRESENT ILLNESS: This gentleman became very delirious last night. He received a single injection of Haldol, in addition to his coming in to stay with him. He has also not had a bowel movement for several days. REVIEW OF SYSTEMS: Unobtainable. PHYSICAL EXAMINATION: He is much more awake and alert and following now and in trying to talk. Chest is clear. The cardiac exam is normal. Abdomen is soft and nontender. IMPRESSION: 1. Hypotension due to dehydration. 2. Parkinson disease. 3. Dementia. 4. Constipation. 5. Agitation. PLAN: We will introduce stool softeners to see if this helps and we will continue to increase his activity and he may be able to go back to the skilled nursing in the next day or 2. ROBERTA / ESTEVAN: [id number] /
[2019-07-28] MEDS: SODIUM CHLORIDE 0.9% 1,000 ML IV SCH ×3 (03:11→21:01)
[2019-07-28 05:57] LABS: Glucose,Whole Blood 107 mg/dL (75-99)
[2019-07-28] MEDS: DOCUSATE ORAL SOLN 100 MG/10 ML CUP PEG/G-TUBE SCH (08:50)
[2019-07-28] MEDS: ASPIRIN 81 MG PO SCH (08:51)
[2019-07-28] MEDS: AMANTADINE HCL 100 MG CAP PO SCH ×2 (08:51→21:01)
[2019-07-28] MEDS: MEMANTINE 10 MG TAB PEG/G-TUBE SCH ×2 (08:51→20:59)
[2019-07-28] MEDS: CARBIDOPA-LEVODOPA 25-100 MG 1 EACH TAB PEG/G-TUBE SCH ×4 (08:51→17:14)
[2019-07-28] MEDS: DONEPEZIL 10 MG TAB PEG/G-TUBE SCH (08:51)
[2019-07-28] MEDS: PANTOPRAZOLE 40 MG TABLET PO SCH ×2 (08:51→17:14)
[2019-07-28 11:52] LABS: Glucose,Whole Blood 110 mg/dL (75-99)
[2019-07-28 15:04] VITALS: RESP 16
--- NOTE | 2019-07-28 15:21 | FL ---
Modified barium swallow. HISTORY: Dysphagia. Modified barium swallow was performed with the department of speech pathology. The patient was prese nted with various consistencies of barium. Aspiration was noted with thin liquid barium. Mild transient penetration with other consistencies. Fu ll report is to follow from the department of speech pathology. Impression: Aspiration was noted with thin liquid barium.
[2019-07-28 17:05] LABS: Glucose,Whole Blood 111 mg/dL (75-99)
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
[2019-07-28] MEDS: ATORVASTATIN 20 MG TAB PO SCH (20:59)
[2019-07-29 00:16] LABS: Glucose,Whole Blood 101 mg/dL (75-99)
[2019-07-29 08:14] VITALS: BP 119/69; PULSE 78; TEMP 97.7
[2019-07-29] MEDS: SODIUM CHLORIDE 0.9% 1,000 ML IV SCH (10:32)
[2019-07-29] MEDS: AMANTADINE HCL 100 MG CAP PO SCH (10:38)
[2019-07-29] MEDS: MEMANTINE 10 MG TAB PEG/G-TUBE SCH (10:39)
[2019-07-29] MEDS: DOCUSATE ORAL SOLN 100 MG/10 ML CUP PEG/G-TUBE SCH (10:39)
[2019-07-29] MEDS: CARBIDOPA-LEVODOPA 25-100 MG 1 EACH TAB PEG/G-TUBE SCH ×2 (10:39→12:44)
[2019-07-29] MEDS: DONEPEZIL 10 MG TAB PEG/G-TUBE SCH (10:39)
[2019-07-29] MEDS: PANTOPRAZOLE 40 MG TABLET PO SCH (10:39)
[2019-07-29] MEDS: ASPIRIN 81 MG PO SCH (10:39)
--- NOTE | 2019-07-29 10:49 | CDI ---
Documentation Clarification Form Date: 07/29/2019 10:09:04 AM From: Suri Dumont RN, CCDS Admit Date: 07/26/2019 02:17:00 PM Patient Name: Grant Hightower Visit Number: [id number] Discharge Date: ATTENTION: The Clinical Documentation Specialists (CDI) and [facility] Coding Staff appreciate your assistance in clarifying documentation. Please respond to the clarification below the line at the bottom and electronically sign. The CDI & [facility] Coding staff will review the response and follow-up if needed. Please note: Queries are made part of the Legal Health Record. If you have any questions, please contact the author of this message via ITS. Dr. Srini Heath Encephalopathy was documented in the H&P and subsequent progress notes and further clarification is needed. History/Risk Factors: Dementia, Parkensons, Dysphagia Clinical Indicators: 68-year-old male present to ED on 07/24 with complaint of chest pain. The patient is difficult to evaluate, poor historian, history of dementia per ED assessment. On the day of admission, it was reported that he was hypotensive without any other symptoms. In the emergency room, he was deemed to be dehydrated, no lab evidence of cardiac damage per H/P on 07/25. 07/26 08:00 VS on admission: 92/60 80 16 98.6 AX 07/24 Labs: WBC 6.7, Potassium 5.8, BUN 19, Creatinine 0 93, Lactic acid 1.4 07/24 Chest X Ray: No ac cardiopulmonary process 07/28 modified barium swallow: Aspiration was noted with thin liquid barium 07/25 Nursing neurological assessment: verbal response -confused; cognitive impaired, speech pattern is garbled, patient behavior is cooperative, anxious restless, distractible impulsive, confused.. Treatment: Neurologigal assessment .9 Saline 500 mls@ 999 mls/hr IV X2 Aricept 10 mg Daily /PEG Tube Sinemet 25-100 2 each KENNETH PEG Tube Symmetrel 100 mg PO BID In your professional opinion, please clarify the etiology of the Altered Mental Status, if known. Metabolic Encephalopathy (Specify Underlying Medical Illness) Dementia (if know, specify Type and if with/without Behavioral Disturbance) Other condition (please specify) Unable to determine (Last Revision: September 2017) MTDD
--- NOTE | 2019-07-29 11:53 | MISC ---
MISCELLANOUS REPORT QUERY: Both dementia and metabolic encephalopathy in addition to advanced Parkinson disease. MMODL / IJN: [id number] /
[2019-07-29 11:55] LABS: Glucose,Whole Blood 128 mg/dL (75-99)
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
== END 2019-07-29 13:46 | disposition home health service (06) ==
LOC: EC 10:39 → 3SCARD 14:24 → 6NMEDSUR 07-26 10:50 → INTOOBSV 07-26 14:17 → OBSVTOIN 07-26 14:17 → UNDODISIN 07-29 13:46
PROVIDERS: ADMIT Family Medicine; ATTEND Family Medicine
DX: E86.0 Dehydration (principal); R07.89 Other chest pain; F02.81 Dementia in other diseases classified elsewhere, unspecified severity, with behavioral disturbance; T68.XXXA Hypothermia, initial encounter; T33.839A Superficial frostbite of unspecified toe(s), initial encounter; G20 Parkinson's disease; F32.9 Major depressive disorder, single episode, unspecified; R10.9 Unspecified abdominal pain; G93.49 Other encephalopathy; R53.81 Other malaise; R13.10 Dysphagia, unspecified; X31.XXXA Exposure to excessive natural cold, initial encounter; I95.9 Hypotension, unspecified; Z87.891 Personal history of nicotine dependence; I10 Essential (primary) hypertension; E78.5 Hyperlipidemia, unspecified; K59.00 Constipation, unspecified; Z93.1 Gastrostomy status; Z85.828 Personal history of other malignant neoplasm of skin; Z79.891 Long term (current) use of opiate analgesic; Z79.899 Other long term (current) drug therapy; Z79.1 Long term (current) use of non-steroidal anti-inflammatories (NSAID); I07.1 Rheumatic tricuspid insufficiency; I34.0 Nonrheumatic mitral (valve) insufficiency; Z82.0 Family history of epilepsy and other diseases of the nervous system
CPT/HCPCS: 96360 ×2; 96361 ×6; 96372; 99285; 36415; 93005; 93306; 97162; 97535; 97166; 92610; 92526; 92611; 80053; 80048; 82150; 83605; 83690; 84484; 85025; 85027; 81001; 87040; 74230; 71045; 74018; G0378 ×7; J1630